=== PATIENT | female | born 1960 | race Caucasian/White ===

== ENCOUNTER 2017-06-18 14:26 | Emergency (ER) | payer OTHER ==
--- NOTE | 2017-06-18 15:10 | RAD ---
AP CHEST: Indication: Cough. Comparison: 09-19-15 FINDINGS: There is stable cardiomegaly and single lead IACD. Sternotomy changes are similar. ACDF at lower cer vical spine is similar. Post-surgical change of rotator cuff is present. There are surgical clips in the right upper quadrant consistent with prior cholecystectomy. No airspace consolidation, pleural effusion, or pneumothorax. No acute osseous abnormality is evident. IMPRESSION: No acute cardiopulmonary abnormality. POS: [facility]
[2017-06-18 16:45] LABS: #Lymphocytes 1.4 thou/uL (1.20-3.40); #Monocytes 0.4 thou/uL (0.11-0.59); #Neutrophils 1.7 thou/uL (1.40-6.50); %Basophils 1.2 % (0.0-1.0); %Eosinophils 1.3 % (0.0-10.0); %Lymphocytes 38.6 % (21.0-51.0); %Monocytes 11.5 % (0.0-10.0); Hematocrit 46.7 % (36.0-47.0); Red Blood Cell (RBC) Count 5.07 mill/uL (4.20-5.40); White Blood Cell (WBC) Count 3.7 thou/uL (4.8-10.8)
[2017-06-18 16:52] LABS: PTT 28.7 SEC (22.9-36.1); Prothrombin Time 14.1 SEC (12.0-14.7)
[2017-06-18 17:10] LABS: Troponin I Less than 0.010 ng/mL (< 0.028)
[2017-06-18 17:11] LABS: ALT (SGPT) 26 U/L (8-55); AST (SGOT) 34 U/L (5-34); Alkaline Phosphatase 83 U/L (40-150); Anion Gap 15 mmol/L (10-20); BUN (Urea Nitrogen) 12 mg/dL (9.8-20.1); Bilirubin, Total 0.8 mg/dL (0.2-1.2); Calc. Creatinine Clearance 0 mL/min (70-130); Calcium 9.4 mg/dL (7.8-10.44); Carbon Dioxide 24 mmol/L (22-29); Chloride 102 mmol/L (98-107); Estimated GFR-MDRD 58; Globulin 3.5 g/dL (2.4-3.5); Protein, Total 7.8 g/dL (6.0-8.3)
== END 2017-06-18 18:40 | disposition home or self-care (01) ==
LOC: ERS 14:26
DX: B34.9 Viral infection, unspecified (principal); J45.909 Unspecified asthma, uncomplicated; E78.5 Hyperlipidemia, unspecified; I10 Essential (primary) hypertension; F32.9 Major depressive disorder, single episode, unspecified; I25.810 Atherosclerosis of coronary artery bypass graft(s) without angina pectoris; Z79.899 Other long term (current) drug therapy
CPT/HCPCS: 36415; 71010; 80053; 82553; 83880; 84484; 85025; 85610; 85730; 93005

== ENCOUNTER 2018-10-24 14:19 | Outpatient (CLI) | payer BC | END 2018-10-24 14:20 | disposition home or self-care (01) | LOC: BICMAMMO 14:19 | PROVIDERS: ATTEND Physician Assistant | DX: Z12.31 Encounter for screening mammogram for malignant neoplasm of breast (principal); Z80.3 Family history of malignant neoplasm of breast | CPT/HCPCS: 77063; 77067 ==

== ENCOUNTER 2019-07-13 12:44 | Outpatient (CLI) | payer BC ==
--- NOTE | 2019-07-13 13:52 | CT ---
CT BILATERAL TEMPORAL BONES WITHOUT CONTRAST: CLINICAL HISTORY: Mixed hearing loss. Dizziness. FINDINGS: Right temporal bone: The vestibulocochlear apparatus and semicircular canals are unremarkable. The os sicular chain is intact. The intratemporal course of the facial nerve is normal in appearance. No abnormal middle ear opacification. Tympanic membrane is unremarkable. Mastoid air cells are clear. Th e vestibular and cochlear aqueducts are normal in caliber. No evidence of scutal erosion. Left temporal bone: The vestibulocochlear apparatus and semicircular canals are unremarkable. The oss icular chain is intact. The intratemporal course of the facial nerve is normal in appearance. No abnormal middle ear opacification. Tympanic membrane is unremarkable. The mastoid air cells are clear . The vestibular and cochlear aqueducts are normal in caliber. No evidence of scutal erosion. Incidental note of prominent opacification involving the maxillary sinuses. There is internal curvili near density of the opacified right maxillary sinus. IMPRESSION: No acute temporal bone pathology. Extensive opacification of bilateral maxillary sinuses, with periosteal thickening. Transcribed Date/Time: 07/13/2019 2:26 PM
== END 2019-07-13 12:45 | disposition home or self-care (01) ==
LOC: CT 12:44
PROVIDERS: ATTEND Otolaryngology Otology & Neurotology
DX: H90.6 Mixed conductive and sensorineural hearing loss, bilateral (principal); R42 Dizziness and giddiness; M89.38 Hypertrophy of bone, other site; J34.89 Other specified disorders of nose and nasal sinuses
CPT/HCPCS: 70480

== ENCOUNTER 2020-04-14 18:35 | Emergency (ER) | payer BC ==
[~2020-04-14 18:35] MED LIST: Iopamidol-370 76% 500 ML 1 ML ONE
[2020-04-14] MEDS ORDERED: Morphine 4 MG/ML VIAL ONE (19:16)
[2020-04-14 19:33] LABS: #Eosinphils 0.1 thou/uL (0.0-0.7); #Lymphocytes 1.3 thou/uL (1.20-3.40); #Monocytes 0.4 thou/uL (0.11-0.59); #Neutrophils 3.7 thou/uL (1.40-6.50); %Basophils 0.3 % (0.0-1.0); %Lymphocytes 24.2 % (21.0-51.0); %Monocytes 6.7 % (0.0-10.0); %Neutrophils 67.7 % (42.0-75.0); Hemoglobin 11.9 g/dL (12.0-16.0); Mean Corpuscular HGB CONC 33.6 g/dL (32.0-36.0); Mean Corpuscular Hemoglobin 28.8 pg (27.0-31.0); Mean Corpuscular Volume 85.7 fL (78.0-98.0); Mean Platelet Volume 9.5 fL (7.4-10.4); Platelet Count 149 thou/uL (130-400); RBC Distribution Width 13.3 % (11.5-14.5); Red Blood Cell (RBC) Count 4.13 mill/uL (4.20-5.40); White Blood Cell (WBC) Count 5.5 thou/uL (4.8-10.8)
[2020-04-14 19:55] LABS: ALT (SGPT) 13 U/L (8-55); AST (SGOT) 18 U/L (5-34); Albumin 4.3 g/dL (3.5-5.0); Alkaline Phosphatase 86 U/L (40-110); Anion Gap 14 mmol/L (10-20); BUN (Urea Nitrogen) 14 mg/dL (9.8-20.1); Bilirubin, Total 0.8 mg/dL (0.2-1.2); CK (CPK) 111 U/L (29-168); Calc. Creatinine Clearance 0 mL/min (70-130); Calcium 9.4 mg/dL (7.8-10.44); Carbon Dioxide 29 mmol/L (22-29); Chloride 98 mmol/L (98-107); Estimated GFR-MDRD 42; Globulin 2.9 g/dL (2.4-3.5); Glucose 100 mg/dL (70-105); Protein, Total 7.2 g/dL (6.0-8.3); Sodium 138 mmol/L (136-145)
[2020-04-14 20:03] LABS: Potassium 2.9 mmol/L (3.5-5.1)
[2020-04-14 20:12] LABS: INR-International Normal Ratio 1.2; Prothrombin Time 14.8 sec (12.0-14.7)
[2020-04-14 20:13] LABS: PTT 29.5 sec (22.9-36.1)
[2020-04-14] MEDS ORDERED: Potassium Chloride 20 MEQ TAB ONE (20:21)
--- NOTE | 2020-04-14 20:36 | CT ---
CTA ABDOMEN AND PELVIS WITH BILATERAL LOWER EXREMITIES WITH CT RUNOFF WITH IV CONTRAST: 04/14/20 Axial tomograms obtained with multiplanar reconstructions and 3D postprocessing. INDICATIONS: Peripheral arterial disease. Lower extremity pain. FINDINGS: The abdominal aorta shows mild atherosclerotic change. No aneurysm or dissection. The aortic changes including celiac artery, superior mesenteric artery, and renal arteries are patent and unremarkable. The aortic bifurcation is patent. Internal and external iliacs are patent and unremarkable. Both femoral arteries and profunda femoral arteries are patent and unremarkable. Both superficial femoral arteries are patent with no significan t atherosclerotic disease. Both popliteal arteries are unremarkable with no significant arterial disease. Both popliteal trifurc ate below the joint space and there is three vessel runoff to both ankles. SOFT TISSUES: Lung bases clear. Liver, spleen, pancreas, adrenal glands and kidneys are unremarkable. Bowel loops u nremarkable. Osseous structures are unremarkable. IMPRESSION: No evidence of significant peripheral arterial disease. POS: [facility]
[2020-04-14] MEDS ORDERED: HYDROmorphone 0.5 MG/0.5 ML SYRINGE ONE (21:54)
== END 2020-04-14 22:26 | disposition home or self-care (01) ==
LOC: ERS 18:35
DX: M54.32 Sciatica, left side (principal); E87.6 Hypokalemia; M62.838 Other muscle spasm; E78.5 Hyperlipidemia, unspecified; E78.00 Pure hypercholesterolemia, unspecified; I10 Essential (primary) hypertension; I42.9 Cardiomyopathy, unspecified; F32.9 Major depressive disorder, single episode, unspecified; Z79.82 Long term (current) use of aspirin; Z79.899 Other long term (current) drug therapy
CPT/HCPCS: 36415; 75635; 80053; 82550; 85025; 85610; 85730; 93005; 96374; 96375; J1170; J2270; Q9967

== ENCOUNTER 2020-12-02 14:05 | Outpatient (CLI) | payer BC | END 2020-12-02 14:06 | disposition home or self-care (01) | LOC: BICMAMMO 14:05 | PROVIDERS: ATTEND Physician Assistant | DX: Z12.31 Encounter for screening mammogram for malignant neoplasm of breast (principal); Z80.3 Family history of malignant neoplasm of breast | CPT/HCPCS: 77063; 77067 ==

== ENCOUNTER 2021-03-21 06:13 | Day surgery (SDC) | payer BC ==
[2021-03-20 13:41] VITALS: BMI 36.6
[2021-03-21] MEDS ORDERED: Lidocaine 1% PF 5 ML VIAL ONE (09:22)
[2021-03-21] MEDS ORDERED: PROPOFOL 200 MG/20 ML VIAL ONE (09:22)
== END 2021-03-21 10:45 | disposition home or self-care (01) ==
LOC: SDC 06:13
PROVIDERS: ATTEND Internal Medicine Gastroenterology
PROC: 0DJD8ZZ Inspection of Lower Intestinal Tract, Via Natural or Artificial Opening Endoscopic (ICD-10-PCS; principal; 2021-03-21)
PROC: 0DB68ZX Excision of Stomach, Via Natural or Artificial Opening Endoscopic, Diagnostic (ICD-10-PCS; principal; 2021-03-21)
DX: K59.00 Constipation, unspecified (principal); K29.50 Unspecified chronic gastritis without bleeding; B96.81 Helicobacter pylori [H. pylori] as the cause of diseases classified elsewhere; K21.9 Gastro-esophageal reflux disease without esophagitis; I11.0 Hypertensive heart disease with heart failure; I50.9 Heart failure, unspecified; E78.5 Hyperlipidemia, unspecified; Z88.8 Allergy status to other drugs, medicaments and biological substances; Z91.013 Allergy to seafood; Z95.1 Presence of aortocoronary bypass graft; Z95.810 Presence of automatic (implantable) cardiac defibrillator
CPT/HCPCS: 88305; 88312; J2704

== ENCOUNTER 2021-05-26 07:15 | Outpatient (CLI) | payer BC ==
[2021-05-26] MEDS ORDERED: Iopamidol 370 76% 100 ML VIAL ONE (15:11)
== END 2021-05-26 07:16 | disposition home or self-care (01) ==
LOC: CT 07:15
PROVIDERS: ATTEND Internal Medicine Gastroenterology
DX: R10.11 Right upper quadrant pain (principal); K59.00 Constipation, unspecified; K29.00 Acute gastritis without bleeding; A04.8 Other specified bacterial intestinal infections
CPT/HCPCS: 74177; 82565; Q9967

== ENCOUNTER 2021-10-20 12:36 | Outpatient (CLI) | payer BC | END 2021-10-20 12:37 | disposition home or self-care (01) | LOC: BICRAD 12:36 | PROVIDERS: ATTEND Physician Assistant | DX: Z86.16 Personal history of COVID-19 (principal) | CPT/HCPCS: 71046 ==

== ENCOUNTER 2022-01-25 06:58 | Day surgery (SDC) | payer BC ==
[2022-01-22 16:10] VITALS: BMI 36.6
[2022-01-25 07:46] VITALS: BP 128/62; TEMP 98.6
== END 2022-01-25 09:47 | disposition home or self-care (01) ==
LOC: RAD 06:58 → EDSTATUS 08:00 → RAD 09:47
PROVIDERS: ATTEND Neurological Surgery
PROC: B01B1ZZ Fluoroscopy of Spinal Cord using Low Osmolar Contrast (ICD-10-PCS; principal; 2022-01-25)
DX: M50.01 Cervical disc disorder with myelopathy, high cervical region (principal); M50.11 Cervical disc disorder with radiculopathy, high cervical region; M47.12 Other spondylosis with myelopathy, cervical region; M47.22 Other spondylosis with radiculopathy, cervical region; M48.02 Spinal stenosis, cervical region; M51.16 Intervertebral disc disorders with radiculopathy, lumbar region; M47.26 Other spondylosis with radiculopathy, lumbar region; M48.061 Spinal stenosis, lumbar region without neurogenic claudication; M51.37 Other intervertebral disc degeneration, lumbosacral region; M47.817 Spondylosis without myelopathy or radiculopathy, lumbosacral region; M48.07 Spinal stenosis, lumbosacral region; G56.23 Lesion of ulnar nerve, bilateral upper limbs; G62.9 Polyneuropathy, unspecified; Z79.02 Long term (current) use of antithrombotics/antiplatelets; Z79.899 Other long term (current) drug therapy; Z91.013 Allergy to seafood; Z98.1 Arthrodesis status
CPT/HCPCS: 62305; 72050; 72100; 72126; 72132

== ENCOUNTER 2022-11-08 13:53 | Outpatient (CLI) | payer BC | END 2022-11-08 13:54 | disposition home or self-care (01) | LOC: BICMAMMO 13:53 | PROVIDERS: ATTEND Physician Assistant | DX: Z12.31 Encounter for screening mammogram for malignant neoplasm of breast (principal); Z80.3 Family history of malignant neoplasm of breast | CPT/HCPCS: 77063; 77067 ==

== ENCOUNTER 2023-08-06 10:03 | Outpatient (CLI) | payer OTHER | END 2023-08-06 10:04 | disposition home or self-care (01) | LOC: BICRAD 10:03 | PROVIDERS: ATTEND Internal Medicine | DX: Z02.71 Encounter for disability determination (principal); M47.812 Spondylosis without myelopathy or radiculopathy, cervical region; Z98.1 Arthrodesis status | CPT/HCPCS: 72040 ==